=== PATIENT | male | born 1950 | race African-American/Black ===

== ENCOUNTER 2018-02-16 17:35 | Emergency (ER) | payer MEDICARE, OTHER ==
[~2018-02-16] VITALS: Ht 185.4 cm; Wt 63.0 kg
[2018-02-16 17:36] VITALS: BP 92/64
== END 2018-02-16 19:15 | disposition left against medical advice (07) ==
LOC: ER 17:35
DX: F41.9 Anxiety disorder, unspecified (principal); F14.188 Cocaine abuse with other cocaine-induced disorder; I95.9 Hypotension, unspecified; R53.1 Weakness; I10 Essential (primary) hypertension; E11.9 Type 2 diabetes mellitus without complications; Z95.2 Presence of prosthetic heart valve
CPT/HCPCS: 99283